=== PATIENT | female | born 1955 | race American Indian/Alaskan Native ===

== ENCOUNTER 2016-03-16 21:26 | Emergency (ER) | payer MEDICAID ==
[2016-03-16 23:04] LABS: Basophils % (Auto) 0.6 % (0.0-1.8); Hematocrit 35.9 % (30.3-42.9); Hemoglobin 11.8 gm/dl (10.1-14.3); Mean Corpuscular HGB Conc 33 % (30-34); Mean Corpuscular Hemoglobin 27 pg (28-32); Mean Corpuscular Volume 83 fl (79-97); Platelet Count 241 K/mm3 (140-440); Red Blood Count 4.35 M/mm3 (3.65-5.03); Red Cell Distribution Width 15.7 % (13.2-15.2); White Blood Count 6.1 K/mm3 (4.5-11.0)
[2016-03-16 23:21] LABS: Blood Urea Nitrogen 15 mg/dL (7-17); Calcium 9.6 mg/dL (8.4-10.2); Carbon Dioxide 24 mmol/L (22-30); Chloride 98.9 mmol/L (98-107); Glucose 288 mg/dL (65-100); Sodium 135 mmol/L (137-145)
[2016-03-16 23:26] LABS: Anion Gap 16 mmol/L
[2016-03-17 00:46] LABS: Bilirubin,Urine NEG (Negative); Blood,Urine SM (Negative); Ketones,Urine NEG (Negative); Leukocyte Esterase,Urine NEG (Negative); Nitrite,Urine NEG (Negative); Protein,Urine <15 mg/dL mg/dL (Negative); Urobilinogen,Urine < 2.0 mg/dL (<2.0); WBC,Urine < 1.0 /HPF (0.0-6.0)
[2016-03-17 01:26] VITALS: BP 178/88
--- NOTE | 2016-03-17 01:39 | Emergency Department Report ---
ED Back Pain/Injury HPI - General Chief Complaint: Back Pain/Injury Stated Complaint: BACK PAIN/BLOOD IN URINE Time Seen by Provider: 03/17/16 01:26 Source: patient Limitations: No Limitations - History of Present Illness Initial Comments: This is a pleasant 60-year-old female who reports long-standing history of lower back pain that appears to be musculoskeletal in nature. She is used to taking tramadol when necessary for this. She also takes gabapentin from time to time. She has followed up with primary specialist for this on numerous occasions. She reports it is worse with when she is having big game with lots of activities. She denies any radiation of pain down her legs. Denies any difficulty with urination or saddle anesthesia. Patient indicates she would not come today just for her back pain and she is used to this. She is here as well because of concern for seeing a small amount of blood in her urine earlier this evening. She denies any history of kidney stones. She denies any trauma to the flanks. Again she reports feeling at her baseline in general. MD Complaint: back pain -: year(s) Similar Symptoms Previously: Yes Place: home Radiation: none Severity scale (0 -10): 4 Quality: dull Consistency: constant Improves With: other (rest) Worsens With: walking Associated Symptoms: denies: weakness, incontinence, fever/chills - Related Data Previous Rx's Medication Instructions Recorded Last Taken Type HYDROcodone/APAP 5-325 [[place] 1 each PO Q6HR PRN #30 tablet 03/17/16 Unknown Rx 5-325 mg TAB] Allergies Allergy/AdvReac Type Severity Reaction Status Date / Time No Known Allergies Allergy Unverified 03/16/16 21:56 ED Review of Systems ROS: Stated complaint: BACK PAIN/BLOOD IN URINE Other details as noted in HPI Constitutional: denies: chills, fever Eyes: denies: eye pain, eye discharge, vision change ENT: denies: ear pain, throat pain Respiratory: denies: cough, shortness of breath, wheezing Cardiovascular: denies: chest pain, palpitations Endocrine: no symptoms reported Gastrointestinal: denies: abdominal pain, nausea, diarrhea Genitourinary: denies: urgency, dysuria, discharge Musculoskeletal: denies: back pain, joint swelling, arthralgia Skin: denies: rash, lesions Neurological: denies: headache, weakness, paresthesias Psychiatric: denies: anxiety, depression Hematological/Lymphatic: denies: easy bleeding, easy bruising ED Past Medical Hx - Past Medical History Hx Hypertension: Yes Hx Diabetes: Yes Hx of Cancer: Yes (Breast) Hx Arthritis: Yes Additional medical history: thyroid, high calcium - Social History Smoking Status: Never Smoker Substance Use Type: None - Medications Home Medications: Home Medications Medication Instructions Recorded Confirmed Last Taken Type HYDROcodone/APAP 5-325 [[place] 1 each PO Q6HR PRN #30 tablet 03/17/16 Unknown Rx 5-325 mg TAB] ED Physical Exam - General Limitations: No Limitations General appearance: alert, in no apparent distress - Head Head exam: Present: atraumatic, normocephalic - Eye Eye exam: Present: normal appearance - ENT ENT exam: Present: mucous membranes moist - Neck Neck exam: Present: normal inspection - Respiratory Respiratory exam: Present: normal lung sounds bilaterally. Absent: respiratory distress - Cardiovascular Cardiovascular Exam: Present: regular rate, normal rhythm. Absent: systolic murmur, diastolic murmur, rubs, gallop - GI/Abdominal GI/Abdominal exam: Present: soft, normal bowel sounds - Extremities Exam Extremities exam: Present: normal inspection - Back Exam Back exam: Present: tenderness (mild in lower paralumbar region.). Absent: CVA tenderness (L), muscle spasm - Neurological Exam Neurological exam: Present: alert, oriented X3 - Psychiatric Psychiatric exam: Present: normal affect, normal mood - Skin Skin exam: Present: warm, dry, intact, normal color. Absent: rash ED Course Vital Signs 03/16/16 03/17/16 21:45 01:24 Temperature 98.6 F 98.8 F Pulse Rate 116 H 92 H Respiratory 16 Rate Blood Pressure 202/97 Blood Pressure 178/88 [Left] O2 Sat by Pulse 100 100 Oximetry - Reevaluation(s) Reevaluation #1: 03/17/16 04:50 Patient well-appearing here. Urinalysis is unremarkable no blood noted specifically no sign of infectious process noted. CBC demonstrates unremarkable as well other than elevated glucose. Electrolytes studies again unremarkable as well. I did try to impress upon the patient's low suspicion for concerning pathology regarding the hematuria and she saw her earlier. Inclined to see if this persists. She she was informed that if symptoms persist she may need urology referral possible cystoscopy. I have a low suspicion for any acute or intrinsic kidney etiology. My suspicion is more likely that it is transient. An unremarkable in nature. Per patient's request I did write for some hydrocodone for home. She does report compliance with their use. She has plans to follow up with her primary physician as well stable safe for home. ED Medical Decision Making - Lab Data Result diagrams: 03/16/16 22:50 03/16/16 22:50 Critical care attestation.: If time is entered above; I have spent that time in minutes in the direct care of this critically ill patient, excluding procedure time. ED Disposition Clinical Impression: Hyperglycemia Back pain Qualifiers: Back pain location: low back pain Chronicity: acute Back pain laterality: bilateral Sciatica presence: without sciatica Qualified Code(s): M54.5 - Low back pain Disposition: DISCHARGED TO HOME OR SELFCARE Is pt being admited?: No Does the pt Need Aspirin: No Condition: Stable Instructions: Chronic Back Pain (ED) Prescriptions: HYDROcodone/APAP 5-325 [Franklin 5-325 mg TAB] 1 each PO Q6HR PRN #30 tablet PRN Reason: Pain Referrals: PRIMARY CARE, [Primary Care Provider] - 3-5 Days Time of Disposition: 01:39
== END 2016-03-17 02:09 | disposition home or self-care (01) ==
LOC: ED 21:26
DX: E11.65 Type 2 diabetes mellitus with hyperglycemia (principal); M54.5 Low back pain; I10 Essential (primary) hypertension; Z85.3 Personal history of malignant neoplasm of breast; Z87.39 Personal history of other diseases of the musculoskeletal system and connective tissue
CPT/HCPCS: 36415; 80048; 81001; 85025; 99283

== ENCOUNTER 2016-12-23 13:46 | Emergency (ER) | payer MEDICAID ==
[2016-12-23] MEDS ORDERED: ZOFRAN IM ONE (17:45)
[2016-12-23] MEDS ORDERED: DILAUDID IM ONE (17:45)
--- NOTE | 2016-12-23 17:51 | Emergency Department Report ---
ED Back Pain/Injury HPI - General Chief Complaint: Extremity Injury, Lower Stated Complaint: LEFT LEG PAIN Time Seen by Provider: 12/23/16 17:38 Source: patient Limitations: No Limitations - History of Present Illness Initial Comments: Patient is 61 years old female with past medical history of hypertension came today with back pain started yesterday radiating down to her left leg patient stated that she had similar condition before. Patient denied any bowel or bladder incontinence, no weakness or numbness or tingling sensation. Patient denied any fever recently. MD Complaint: back pain -: Last night Similar Symptoms Previously: Yes Radiation: none Severity: moderate Severity scale (0 -10): 7 Quality: sharp, dull Improves With: immobilization Worsens With: movement Associated Symptoms: denies: confusion, weakness, chest pain, numbness, difficulty walking, cough, difficulty urinating, diaphoresis, incontinence, fever/chills, constipation, headaches, abdominal pain, loss of appetite, malaise , nausea/vomiting, rash, seizure, shortness of breath, syncope - Related Data Previous Rx's Medication Instructions Recorded Last Taken Type HYDROcodone/APAP 5-325 [[place] 1 each PO Q6HR PRN #30 tablet 03/17/16 Unknown Rx 5-325 mg TAB] Allergies Allergy/AdvReac Type Severity Reaction Status Date / Time No Known Allergies Allergy Unverified 03/16/16 21:56 ED Review of Systems ROS: Stated complaint: LEFT LEG PAIN Other details as noted in HPI Comment: All other systems reviewed and negative Constitutional: denies: chills, fever Respiratory: denies: cough, orthopnea, shortness of breath, SOB with exertion Cardiovascular: denies: chest pain, palpitations, dyspnea on exertion Gastrointestinal: denies: abdominal pain, nausea, vomiting, diarrhea, constipation, hematemesis, melena, hematochezia Genitourinary: denies: urgency, dysuria, frequency, hematuria Musculoskeletal: back pain. denies: joint swelling, arthralgia, myalgia Skin: denies: rash Neurological: denies: headache, weakness, numbness, paresthesias, confusion, abnormal gait ED Past Medical Hx - Past Medical History Hx Hypertension: Yes Hx Diabetes: Yes Hx Arthritis: Yes Additional medical history: thyroid, high calcium - Social History Smoking Status: Never Smoker Substance Use Type: None - Medications Home Medications: Home Medications Medication Instructions Recorded Confirmed Last Taken Type HYDROcodone/APAP 5-325 [[place] 1 each PO Q6HR PRN #30 tablet 03/17/16 Unknown Rx 5-325 mg TAB] ED Physical Exam - General Limitations: No Limitations General appearance: alert, in no apparent distress - Head Head exam: Present: atraumatic, normocephalic - Eye Eye exam: Present: normal appearance - ENT ENT exam: Present: normal exam - Neck Neck exam: Present: normal inspection, full ROM. Absent: tenderness, meningismus - Respiratory Respiratory exam: Present: normal lung sounds bilaterally - Cardiovascular Cardiovascular Exam: Present: regular rate, normal rhythm, normal heart sounds. Absent: bradycardia, tachycardia - GI/Abdominal GI/Abdominal exam: Present: soft, normal bowel sounds. Absent: distended, tenderness, guarding, rebound, rigid, mass, bruit, pulsatile mass, hernia - Extremities Exam Extremities exam: Present: normal inspection, full ROM, normal capillary refill - Back Exam Back exam: Present: normal inspection. Absent: tenderness, CVA tenderness (R), CVA tenderness (L) - Neurological Exam Neurological exam: Present: alert, oriented X3, CN II-XII intact, normal gait - Psychiatric Psychiatric exam: Present: normal affect, normal mood - Skin Skin exam: Present: warm, intact, normal color ED Course Vital Signs 12/23/16 12/23/16 12/23/16 14:32 18:27 18:30 Temperature 98 F Pulse Rate 82 77 79 Respiratory 18 18 15 Rate Blood Pressure 167/78 138/59 O2 Sat by Pulse 100 99 99 Oximetry 12/23/16 12/23/16 12/23/16 18:45 19:00 19:15 Temperature Pulse Rate 79 73 74 Respiratory 14 13 9 L Rate Blood Pressure 152/66 142/62 129/61 O2 Sat by Pulse 100 98 97 Oximetry - Reevaluation(s) Reevaluation #1: 12/23/16 20:47 Patient stated that she is feeling better. ED Medical Decision Making - Radiology Data Radiology results: report reviewed Lumbar x-ray showed degenerative disc disease, left hip x-ray negative for acute finding. Critical care attestation.: If time is entered above; I have spent that time in minutes in the direct care of this critically ill patient, excluding procedure time. ED Disposition Clinical Impression: Back pain, Sciatica Disposition: DC-01 TO HOME OR SELFCARE Is pt being admited?: No Condition: Stable Instructions: Back Pain (ED), Sciatica (ED) Referrals: PRIMARY CARE,MD [Primary Care Provider] - 3-5 Days
--- NOTE | 2016-12-23 19:20 | XRay Report ---
FINAL REPORT EXAM: XR HIP 2-3V LT HISTORY: lt hip pain TECHNIQUE: AP view of the pelvis and single coned-down lateral view of the left hip. PRIORS: None FINDINGS: No evidence for acute fracture or dislocation is seen. Joint spaces are maintained. The soft tissues are unremarkable. Bony mineralization is normal. IMPRESSION: No acute soft tissue or bony abnormality noted in the left hip.
--- NOTE | 2016-12-23 20:16 | XRay Report ---
FINAL REPORT PROCEDURE: XR SPINE LUMBOSACRAL 2-3V TECHNIQUE: Lumbar spine radiographs, including AP, lateral, and lumbosacral spot views. CPT 75126 HISTORY: lumbar pain COMPARISON: No prior studies are available for comparison. FINDINGS: There is mild wedging of the T12 and L1 vertebral bodies. These may be old. I do not see any discrete fracture lines. Correlation with physical exam recommended to exclude acute fracture. Anterior osteophytic spurring is seen throughout the lumbar spine greatest upper lumbar spine and lower thoracic spine. Height of the disc spaces is well preserved there is mild to moderate facet arthritis visualized inferiorly. There appears to be mild curvature possibly scoliosis involving upper lumbar spine versus positioning artifact. IMPRESSION: Mild wedging T12 and L1 vertebral bodies as described. Correlation with physical exam recommended to exclude acute fractures. Degenerative disc disease as described above. Mild to moderate facet arthritis also present..
[2016-12-23 21:13] VITALS: BP 143/67
== END 2016-12-23 21:14 | disposition home or self-care (01) ==
LOC: ED 13:46
DX: M54.32 Sciatica, left side (principal); E11.9 Type 2 diabetes mellitus without complications; M19.90 Unspecified osteoarthritis, unspecified site; I10 Essential (primary) hypertension
CPT/HCPCS: 72100; 73502; 96372; 99283; J1170; J2405

== ENCOUNTER 2017-02-06 11:13 | Outpatient (CLI) | payer MEDICAID ==
--- NOTE | 2017-02-06 14:51 | Mammography Report ---
Screening mammogram: Patient with left lumpectomy and radiation therapy. Routine views are compared to prior studies. Surgical clips are located centrally on the left and there is slight loss of breast volume. There is mild architectural distortion related to the surgical site. There is an intermediate fibroglandular pattern distributed through the right breast with no other findings. No significant change identified when compared to prior exam in 2015. CAD used. Impression: Stable breast pattern post left partial mastectomy/radiation. Recommendation: Annual mammogram followup. BILATERAL MAMMOGRAM: FINDINGS: There are scattered fibroglandular densities (approximately 25%-50% glandular). No mass, distortion, suspicious calcification, or skin change is seen. CAD was utilized. IMPRESSION: Negative mammogram. There is no mammographic evidence of malignancy. RECOMMENDATION: Follow-up per ACS guidelines. BI-RADS CATEGORY: 1 = Negative ACR BI-RADS MAMMOGRAPHIC CODES: 0 = Needs additional imaging evaluation; 1 = Negative; 2 = Benign; 3 = Probably benign; 4 = Suspicious; 5 = Malignant; 6 = Known biopsy-proven malignancy COMMENT: 1. Dense breast tissue, i.e., adenosis, fibrocystic changes, etc., may obscure an underlying neoplasm. 2. Approximately 10% of cancers are not detected with mammography. 3. A negative mammography report should not delay biopsy if a clinically suspicious mass is present. COMMENT: Patient follow-up letters are generated in [employer].
--- NOTE | 2017-02-06 14:57 | Mammography Report ---
BONE DENSITY STUDY: Postmenopausal osteoporosis. DEFINITIONS: BMD = Bone Mineral Density T-score = BMD related to mean peak bone mass of young adult (mean expressed in Standard Deviation) Z-score = Age matched BMD expressed in SD World Health Organization (WHO) Diagnostic Criteria Normal T-score > -1 SD Osteopenia T-score between -1 and -2.4 SD Osteoporosis T-score -2.5 SD or below FINDINGS: The weighted average BMD of lumbar spine L1-L4 is 0.795 with aT-score of -3.2. The weighted average BMD of the left hip is 0.94 with a T-score of -0.7. IMPRESSION: The patient's average T-score is diagnostic for osteoporosis and high relative risk for fracture. NOTE: BMD is not the only risk factor for fracture; also consider factors such as the patient's age, risk of falling, previous osteoporotic fracture, family history of osteoporotic fractures, current smoker, and low body weight. Gallegos's triangle is a region of interest in femur, predominantly of trabecular bone. It is not a true anatomic site, and ISCD does not recommend its use clinically.
== END 2017-02-06 11:14 | disposition home or self-care (01) ==
LOC: SPVWC 11:13
PROVIDERS: ATTEND Internal Medicine Hematology & Oncology
DX: Z12.31 Encounter for screening mammogram for malignant neoplasm of breast (principal); M81.0 Age-related osteoporosis without current pathological fracture; I10 Essential (primary) hypertension; Z78.0 Asymptomatic menopausal state; Z90.12 Acquired absence of left breast and nipple
CPT/HCPCS: 77080; G0202; 77067

== ENCOUNTER 2017-03-06 08:19 | Outpatient (CLI) | payer MEDICAID ==
[2017-03-06 09:24] LABS: Blood Urea Nitrogen 10 mg/dL (7-17)
--- NOTE | 2017-03-06 13:02 | Nuclear Medicine Report ---
BONE SCAN: HISTORY: Low back pain, breast cancer. COMPARISON: Bone scan report dated 10/13/11. After injection of isotope, gamma camera imaging of the bony system was done. There is normal soft tissue and renal uptake. Mild degenerative uptake is identified in the shoulders, elbows, wrists, bilateral L5-S1 facet joints, knees and ankles. No additional areas of abnormal uptake to suggest metastatic disease or fracture. IMPRESSION: Degenerative changes. No evidence for acute injury or metastatic disease to the bones.
--- NOTE | 2017-03-06 13:52 | Cat Scan Report ---
CT of the chest, abdomen, and pelvis with IV and oral contrast. History: Malignant neoplasm. Findings: A right [id number] catheter is noted. At the level of the posterior margin of the left atrium at the junction with the right pulmonary vein there is an ovoid shaped smooth density which measures 1.5 cm in diameter. The CT numbers range from -10 to -28 indicating at least some adipose tissue component. Otherwise, mediastinum and hilar regions appear normal. The lungs are clear. There is no pleural fluid. No axillary abnormalities are seen. The liver, spleen, and pancreas are normal. There is a 1.5 cm in diameter soft tissue nodule in the lateral limb of the right adrenal gland. The left adrenal gland is slightly enlarged and there appear to be 2 small nodules in the left adrenal gland the largest of which measures 1.5 cm in diameter. The kidneys are normal in size and configuration except for the presence of a subcentimeter cyst in the upper pole of the right kidney. There is no evidence of a solid mass or hydronephrosis. The gallbladder is unremarkable. There are no pelvic masses or abnormal fluid collections. No mesenteric adenopathy is seen. The appendix is normal. There are no suspicious bony findings. Impression: No evidence of metastatic disease or other suspicious findings. 2. Benign-appearing small nodule in the right infrahilar region at least partially composed of adipose tissue. 3. Bilateral small adrenal nodules which have benign features. 4. Subcentimeter right renal cyst.
== END 2017-03-06 08:20 | disposition home or self-care (01) ==
LOC: NM 08:19
PROVIDERS: ATTEND Internal Medicine Hematology & Oncology
DX: C50.212 Malignant neoplasm of upper-inner quadrant of left female breast (principal); N28.1 Cyst of kidney, acquired; E27.8 Other specified disorders of adrenal gland; M19.011 Primary osteoarthritis, right shoulder; M19.012 Primary osteoarthritis, left shoulder; M47.896 Other spondylosis, lumbar region
CPT/HCPCS: 36415; 71260; 74177; 78306; 82565; 84520; A9503; Q9967

== ENCOUNTER 2018-02-07 11:15 | Outpatient (CLI) | payer OTHER ==
--- NOTE | 2018-02-08 08:47 | Mammography Report ---
BILATERAL DIGITAL SCREENING MAMMOGRAM WITH CAD: 02/07/18 11:15:00 CLINICAL: Routine screening.Breast cancer survivor status post left partial mastectomy and radiation therapy. COMPARISON:02/06/17 FINDINGS: There are bilateral scattered fibroglandular densities. Stable left upper inner postsurgical scar with surgical clips. No mass, suspicious architectural distortion or suspicious calcifications. IMPRESSION: No mammographic evidence of malignancy. BI-RADS CATEGORY: 2 -- Benign RECOMMENDATION: Routine mammographic screening in one year. COMMENT: Patient follow-up letters are generated via our [employer] application.
== END 2018-02-07 11:16 | disposition home or self-care (01) ==
LOC: SPVWC 11:15
PROVIDERS: ATTEND Internal Medicine
DX: Z12.31 Encounter for screening mammogram for malignant neoplasm of breast (principal); I10 Essential (primary) hypertension; M19.90 Unspecified osteoarthritis, unspecified site
CPT/HCPCS: 77067

== ENCOUNTER 2020-02-16 10:56 | Outpatient (CLI) | payer MEDICARE, OTHER ==
--- NOTE | 2020-02-16 11:41 | Mammography Report ---
DIGITAL SCREENING MAMMOGRAM WITH CAD, 02/16/2020 CLINICAL INFORMATION / INDICATION: Routine screening mammography. SCREENING MAMMOGRAM TECHNIQUE: Digital bilateral 2D mammography was obtained in the craniocaudal and mediolateral obliqu e projections. This examination was interpreted with the benefit of Computer-Aided Detection analysis . COMPARISON: 02/11/2019, 02/07/2018, 02/06/2017 FINDINGS: Breast Density: There are scattered areas of fibroglandular density. No dominant mass, suspicious calcifications, or architectural distortion in either breast. Postsurgical changes are noted in the left breast. IMPRESSION: No mammographic evidence of malignancy. Follow up recommendation: Routine yearly BI-RADS Category 2: Benign. A "normal" or negative report should not discourage follow up or biopsy of a clinically significant f inding. A written summary of these findings will be mailed to the patient. The patient will be entered into a mammography reporting system which will generate a reminder letter for the patient's next appointmen t at the appropriate interval. The [employer] recommends yearly mammograms starting at age 40 and continuing as l delisa as a woman is in good health. Breast MRI is recommended for women with an approximate 20-25% or greater lifetime risk of breast cancer, including women with a strong family history of breast or ova rigo cancer or who have been treated for Hodgkin's disease. Signer Name: Marlene Odell MD Signed: 02/16/2020 11:36 AM Workstation Name: [id number]
== END 2020-02-16 10:57 | disposition home or self-care (01) ==
LOC: SPVWC 10:56
PROVIDERS: ATTEND Family Medicine
DX: Z12.31 Encounter for screening mammogram for malignant neoplasm of breast (principal)
CPT/HCPCS: 77067